=== PATIENT | female | born 1990 | race American Indian/Alaskan Native ===

== ENCOUNTER 2017-07-05 15:27 | Inpatient (IN) | payer MEDICAID ==
[2017-07-05] MEDS ORDERED: Misoprostol 25 MCG (1/4 of 100 MCG) Tab VAG ONE (17:10)
[2017-07-05] MEDS ORDERED: Acetaminophen 325 MG Tab PO PRN (18:33)
[2017-07-05] MEDS ORDERED: Sodium Chloride 0.9% 10 ML Syringe FLUSH PRN ×2 (18:33→20:10)
[2017-07-05] MEDS ORDERED: Misoprostol 25 MCG (1/4 of 100 MCG) Tab VAG PRN (18:33)
[2017-07-05] MEDS ORDERED: Oxytocin/Normal Saline 30 UNIT/500 ML BAG IV SCH (18:45)
[2017-07-05] MEDS ORDERED: Lactated Ringers 1,000 ML IV SCH (18:45)
[2017-07-05] MEDS ORDERED: Lactated Ringers 500 ML IV ONE (20:10)
[2017-07-05] MEDS ORDERED: Lidocaine 1% 30 ML SDV INJECT PRN (20:10)
[2017-07-05] MEDS ORDERED: Carboprost Tromethamine 250 MCG/1 ML Amp IM PRN (20:10)
[2017-07-05] MEDS ORDERED: Misoprostol 400 MCG (4 X 100 MCG TAB) RECTAL PRN (20:10)
[2017-07-05] MEDS ORDERED: Methylergonovine 0.2 MG/1 ML Amp IM PRN (20:10)
[2017-07-05] MEDS ORDERED: Ondansetron 4 MG/2 ML SDV IV PRN (20:10)
[2017-07-05] MEDS ORDERED: Famotidine 20 MG Tab PO ONE (21:19)
[2017-07-05] MEDS: Lactated Ringers 1,000 ML IV SCH (23:53)
[2017-07-06] MEDS ORDERED: EPINEPHrine 1 MG/ML SDV ONE ×2 (00:49→11:21)
[2017-07-06] MEDS ORDERED: fentaNYL 100 MCG/2 ML SDV ONE (00:49)
[2017-07-06] MEDS: Lactated Ringers 1,000 ML IV SCH (01:01)
[2017-07-06] MEDS ORDERED: Oxytocin 10 Units/1 ML SDV IM PRN (03:18)
[2017-07-06] MEDS ORDERED: Simethicone 80 MG Tab.Chew PO PRN (03:18)
[2017-07-06] MEDS ORDERED: Sodium Chloride 0.9% 10 ML Syringe FLUSH PRN (03:18)
[2017-07-06] MEDS ORDERED: Zolpidem 5 MG Tab PO PRN (03:18)
[2017-07-06] MEDS ORDERED: Benzocaine/Menthol 20%-0.5% Spray 56 GM Canister TOP PRN (03:18)
[2017-07-06] MEDS: Ibuprofen 800 MG Tab PO PRN ×3 (03:44→22:57)
--- NOTE | 2017-07-06 07:00 | DEL ---
DATE: 07/06/2017 PREOPERATIVE DIAGNOSES: 1. Intrauterine at 39 weeks and 2/7 days confirmed with 18-1/2 weeks' ultrasound. 2. Induction of labor upon admit. 3. Gestational hypertension upon admit. 4. Group B Streptococcus negative. 5. 4, para 2-0-1-2. POSTOPERATIVE DIAGNOSES: 1. Intrauterine at 39 weeks and 2/7 days confirmed with 18-1/2 weeks' ultrasound, delivered. 2. Induction of labor upon admit. 3. Gestational hypertension upon admit. 4. Group B Streptococcus negative. 5. 4, para 2-0-1-2. 6. Second-degree perineal abrasion, nonbleeding, non-repaired, and less than 1 cm. PROCEDURE PERFORMED: NST, Cytotec x1, and artificial rupture of membranes, all on 07/05/2017. On 07/06/2017, subsequent spontaneous vaginal delivery per Dr. Martin. ANESTHESIA/ANALGESIA: Intrathecal in the first stage of labor. ESTIMATED BLOOD LOSS: 350 mL. FINDINGS: Male, scores 9 and 9, weight 3960 g. SUMMARY OF EVENTS: The patient is a 27-year-old G4, P2-0-1-2, intrauterine at 39 weeks and 2/7 days by 18-1/2 weeks' ultrasound, admitted for induction of labor due to gestational hypertension. She received Cytotec x1. Then, subsequently had artificial rupture of membranes, this yielded copious amounts of clear fluid. She was followed closely thereafter and serially evaluated. As she progressed more into labor, she requested intrathecal, and this was subsequently given. She subsequently was found to be complete. Dr. Martin and I were called into the room, donned in sterile gown and gloves. The patient started pushing with contractions, and vertex was delivered in DANIELLE presentation followed by anterior and posterior shoulder then the rest of the without difficulty. Mouth and nares were bulb suctioned. Cord was doubly clamped and cut, and the infant was resuscitated on mother's abdomen. Approximately 10 mL of cord blood was obtained for labs. Placenta was then delivered with gentle cord traction and fundal massage within 15 to 20 minutes. The placenta was found to be intact, and there was a 3-vessel cord. Further fundal massage expelled a 300 cc clot from the uterus. Perineum, vagina, and perirectal areas were then examined and noted to have a small second-degree perineal abrasion, nonbleeding, non-repaired, and less than 1 cm. Mother and infant are currently stable at the time of dictation. seen and agreed with medical student-[facility] /[id number] CASS
--- NOTE | 2017-07-06 08:30 | PCM.PRNOTE ---
- Free Text/Narrative Note: Requested to provide analgesia to full term patient in severe pain. Upon entering the room, patient is sitting on edge of bed, complaining of severe abdominal pain and discomfort. Procedure was discussed with patient including adverse outcomes and expectations. Pt consented to analgesia, SAB/IT. Pt placed into a sitting position. Landmarks for SAB/IT were identified and marked. Back was prepped with betadine x3. A sterile, transparent, fenestrated drape was applied. Excess betadine was removed. Using 3 mL of a 1% lidocaine solution, a skin wheel was placed at the L3/L4 interspace. A 24 ga (4 inch) Pencan spinal needle was inserted until positive for CSF. Negative for heme or paresthesias. Injected fentanyl 20 mcg, sufentanil 10 mcg, and 12 mg of a 0.75 % bupivacaine solution with an epi wash. Pt was placed left lateral position for approximately 20 minutes. There were zero complications or adverse outcomes. Will continue to monitor.
[2017-07-06] MEDS: Docusate Sodium 100 MG Cap PO PRN ×2 (08:47→22:56)
[2017-07-06] MEDS: Prenatal Multivitamin with Calcium/Folic Acid/Iron Tab PO SCH (08:47)
--- NOTE | 2017-07-06 09:26 | PN ---
DATE: 07/05/2017 SUBJECTIVE: The patient's contractions are getting stronger. She is now status post Cytotec x1. OBJECTIVE: Last blood pressure was within normal ranges. heart tones in the 150s range, felt to be reassuring. Tocometer reveals contractions every 2 to 6 to 7 minutes apart. Vaginal exam reveals her to be 4 cm, 75% effaced, -1 station. Vertex suspected. Bulging bag of water noted with artificial rupture of membranes done after discussion with the patient, yielding copious amounts of clear fluid. ASSESSMENT AND PLAN: 1. Intrauterine at 39 and 1/7 weeks, confirmed with 18 and 1/7 weeks' ultrasound, complicated by gestational hypertension. No evidence of preeclampsia. 2. Group B Streptococcus negative. 3. 4, para 2-0-1-2. 4. Now, status post Cytotec x1 and artificial rupture of membranes as above. We will continue to follow clinically and closely. The patient denies any signs or symptoms of severe preeclampsia. [facility] /[id number]
--- NOTE | 2017-07-06 09:56 | OBOUT ---
DATE: 07/05/2017 DATE AND TIME OF NST: Date: 07/05/2017. Time: 1610 hours to 1630 hours. REASON FOR NST: 1. Intrauterine at 39 and 1/7 weeks confirmed by 18 and 1/7 week ultrasound. 2. Gestational hypertension. 3. GBS negative. 4. G4, P2-0-1-2. NST INTERPRETATION: During this time period, heart tone baseline is approximately 155, and there are at least two 15 x 15 beats per minute accelerations, making this strip reactive. It is also noted to be reassuring. Tocometer reveals potential of 4 contractions minimally felt by the patient. ASSESSMENT: 1. Nonstress test, reactive and reassuring. 2. Tocometer with occasional contractions. PLAN: The patient was admitted. Labs were done at the clinic prior to her presentation here. There were no concerns for preeclampsia with white cell count of 10.2, hemoglobin 13.5, and platelets 307. Urine protein-creatinine ratio was 0.2. AST, ALT, uric acid, BUN and creatinine were within normal limits. H and P was done in the clinic today. Please see Epic notes, which were placed in the chart as well. The patient at current time of dictation has now undergone Cytotec and then subsequently artificial rupture membranes approximately 2315 hours. Please see progress note in regard to that. [facility] /[id number]
[2017-07-06] MEDS ORDERED: fentaNYL 100 MCG/2 ML SDV ITHECAL ONE (11:21)
--- NOTE | 2017-07-07 10:31 | PCM.PNPP ---
- General Info Date of Service: 07/07/17 ( PPD # 1) Functional Status: Reports: Pain Controlled, Tolerating Diet, Ambulating, Urinating - Review of Systems General: Reports: No Symptoms HEENT: Reports: No Symptoms Pulmonary: Reports: No Symptoms Cardiovascular: Reports: No Symptoms Gastrointestinal: Reports: No Symptoms Genitourinary: Reports: No Symptoms Musculoskeletal: Reports: No Symptoms Skin: Reports: No Symptoms Neurological: Reports: No Symptoms Psychiatric: Reports: No Symptoms - General Info Date of Service: 07/07/17 (PPD # 1 S/P ) - Patient Data Vital Signs - Most Recent: Last Vital Signs Temp 97.8 F 07/06/17 20:00 Pulse 90 07/06/17 23:00 Resp 16 07/06/17 23:00 BP 132/72 07/06/17 23:00 Pulse Ox 96 07/06/17 01:20 Weight - Most Recent: 195 lb Lab Results - Last 24 Hours: Laboratory Results - last 24 hr 07/07/17 Range/Units 06:20 WBC 8.5 (5.0-10.0) 10^3/uL RBC 3.82 L (4.2-5.4) 10^6/uL Hgb 11.7 L (12.0-16.0) g/dL Hct 35.8 L (37.0-47.0) % MCV 93.7 (80-100) fL MCH 30.6 (27.0-34.0) pg MCHC 32.7 L (33.0-35.0) g/dL Plt Count 233 (150-450) 10^3/uL Med Orders - Current: Current Medications Acetaminophen (Tylenol) 650 mg PO Q4H PRN PRN Reason: Pain/Fever Benzocaine/Menthol (Dermoplast Pain Relief [place]) 0 gm TOP Q4H PRN PRN Reason: Perineal comfort measures Last Admin: 07/06/17 03:44 Dose: 1 spray Carboprost Tromethamine (Hemabate Ds) 250 mcg IM ASDIRECTED PRN PRN Reason: HEMORRHAGE Docusate Sodium (Colace) 100 mg PO BID PRN PRN Reason: Constipation Last Admin: 07/06/17 22:56 Dose: 100 mg Lactated Ringer's (Ringers, Lactated) 1,000 mls @ 125 mls/hr IV ASDIRECTED CIARA Oxytocin/Sodium Chloride (Pitocin In Ns 30 Unit/500 Ml) 30 unit in 500 mls @ 2 mls/hr IV TITRATE CIARA; 2 MUNITS/MIN PRN Reason: Protocol Last Titration: 07/06/17 06:20 Dose: Infused Lactated Ringer's (Ringers, Lactated) 1,000 mls @ 125 mls/hr IV ASDIRECTED CIARA Last Admin: 07/06/17 01:01 Dose: 125 mls/hr Ibuprofen (Motrin) 800 mg PO Q8H PRN PRN Reason: Mild Pain or Fever Last Admin: 07/06/17 22:57 Dose: 800 mg Lidocaine HCl (Xylocaine-Mpf 1%) 10 ml INJECT ASDIRECTED PRN PRN Reason: Perineal Repair Methylergonovine Maleate (Methergine) 0.2 mg IM ASDIRECTED PRN PRN Reason: Hemorrhage Misoprostol (Cytotec) 25 mcg VAG Q4H PRN PRN Reason: cervical ripening Misoprostol (Cytotec) 800 mcg RECTAL ASDIRECTED PRN PRN Reason: Hemorrhage Ondansetron HCl (Zofran) 4 mg IV Q4H PRN PRN Reason: Nausea/Vomiting Last Admin: 07/06/17 00:38 Dose: 4 mg Oxytocin (Pitocin) 10 unit IM ONETIME PRN PRN Reason: Bleeding Prenat Multivit/Appraisal Technician/Iron/Folic Ac ( Plus Iron) 1 each PO DAILY [facility] Last Admin: 07/06/17 08:47 Dose: 1 each Simethicone (Simethicone) 80 mg PO Q4H PRN PRN Reason: Gas Sodium Chloride (Saline Flush) 10 ml FLUSH ASDIRECTED PRN PRN Reason: Keep Vein Open Sodium Chloride (Saline Flush) 10 ml FLUSH ASDIRECTED PRN PRN Reason: Keep Vein Open Sodium Chloride (Saline Flush) 10 ml FLUSH ASDIRECTED PRN PRN Reason: Keep Vein Open Zolpidem Tartrate (Ambien) 5 mg PO BEDTIME PRN PRN Reason: Insomnia Discontinued Medications Epinephrine HCl (Adrenalin) Confirm Administered Dose 1 mg .ROUTE .STK-MED ONE Stop: 07/06/17 00:50 Last Admin: 07/06/17 18:30 Dose: Not Given Epinephrine HCl (Adrenalin) 0.1 mg .XX .STK-MED ONE Stop: 07/06/17 11:22 Famotidine (Pepcid) 20 mg PO ONETIME ONE Stop: 07/05/17 21:20 Last Admin: 07/05/17 22:29 Dose: 20 mg Fentanyl (Sublimaze) Confirm Administered Dose 100 mcg .ROUTE .STK-MED ONE Stop: 07/06/17 00:50 Last Admin: 07/06/17 18:30 Dose: Not Given Fentanyl (Sublimaze) 20 mcg ITHECAL .STK-MED ONE Stop: 07/06/17 11:22 Lactated Ringer's (Ringers, Lactated) 500 mls @ 500 mls/hr IV ONETIME ONE Stop: 07/05/17 21:09 Last Admin: 07/06/17 05:45 Dose: Not Given Misoprostol (Cytotec) 25 mcg VAG ONETIME ONE Stop: 07/05/17 17:11 Last Admin: 07/05/17 18:31 Dose: 25 mcg Sufentanil Citrate (Sufenta) Confirm Administered Dose 50 mcg .ROUTE .STK-MED ONE Stop: 07/06/17 00:50 Last Admin: 07/06/17 18:30 Dose: Not Given Sufentanil Citrate (Sufenta) 10 mcg ITHECAL .STK-MED ONE Stop: 07/06/17 11:22 - Interaction Support Person: Significant Other - Recovery Exam Fundal Tone: Firm Fundal Level: 2 Fingerbreadths Below Umbilicus Fundal Placement: Midline Lochia Amount: Small Lochia Color: Rubra/Red Perineum Description: Intact, Minimal Bruising/Swelling Episiotomy/Laceration: None Bladder Status: Nonpalpable, Voiding - Exam General: Alert, Oriented, Cooperative, No Acute Distress, Mild Distress HEENT: Pupils Equal, Pupils Reactive, Mucous Membr. Moist/[place] Neck: Supple Lungs: Clear to Auscultation, Normal Respiratory Effort Cardiovascular: Regular Rate, Regular Rhythm, No Murmurs GI/Abdominal Exam: Normal Bowel Sounds, Soft, Non-Tender, No Organomegaly, No Distention Extremities: Normal Inspection, Normal Range of Motion, Non-Tender Skin: Warm, Dry, Intact Neurological: No New Focal Deficit, Normal Gait, Normal Speech, Normal Tone Psy/Mental Status: Alert, Normal Affect, Normal Mood - Problem List Review Problem List Initiated/Reviewed/Updated: Yes - My Orders Last 24 Hours: My Active Orders 07/07/17 10:23 Ready for Discharge [RC] PER UNIT ROUTINE - Assessment Assessment:: PPD # 1 S/P Doing well - Plan Plan:: Discharge to home Follow-up with Dr. Martin for recheck Ibuprofen/Tylenol for pain as needed
[2017-07-07] MEDS: Ibuprofen 800 MG Tab PO PRN (10:35)
[2017-07-07] MEDS: Docusate Sodium 100 MG Cap PO PRN (10:35)
[2017-07-07] MEDS: Prenatal Multivitamin with Calcium/Folic Acid/Iron Tab PO SCH (10:36)
[2017-07-07] MEDS ORDERED: FLU VAC QS 17-18(4YR UP)CEL/PF 60 MCG/0.5 ML Syringe IM ONE (13:05)
[2017-07-07 17:26] VITALS: BP 114/63
--- NOTE | 2017-07-09 07:29 | DISCH ---
INDICATION FOR ADMISSION: Ms Marr is a 27-year-old, 4, para 2-0-1-2 female who reported to Labor and Delivery at 39 and 2/7 weeks gestation for induction of labor. She had gestational hypertension. She received Cytotec x1 and tolerated her labor quite well. She had artificial rupture of membranes with clear fluid and once she got uncomfortable, intrathecal anesthesia was obtained. Once she got to complete, she started pushing and she had a normal spontaneous vaginal delivery, DANIELLE of a viable male weighing 8 pounds 12 ounces with scores of 9 at 1 minute, 9 at 5 minutes. She recovered quite well and the went to the nursery. She had a second-degree perineal laceration that was repaired without difficulty. No complications occurred throughout her hospital stay. She tolerated her diet quite well and ambulated quite well. No complications occurred throughout her hospital stay. She had minimal lochia. She was discharged to home on day #1. LABORATORY AND DIAGNOSTIC STUDIES: 07/05/2017; WBC 10.1, hemoglobin 12.7, hematocrit 38.0, platelet count 291,000. On 07/07/2017; WBC 8.5, hemoglobin 11.7, hematocrit 35.8, and platelet count 233,000. DISCHARGE INSTRUCTIONS: 1. Discharge to home. 2. Follow up with Dr. Martin at checkup. 3. No douching, tampons, intercourse for 6 weeks. 4. Discharge instructions including activity, followup, medications, diet, and wound care were discussed with the patient. She understands these and is willing to comply with these. 5. Ibuprofen 800 mg 1 tablet every 8 hours p.r.n. for discomfort. 6. Tylenol p.r.n. for pain. DISCHARGE DIAGNOSES: 1. 39 and 2/7 week intrauterine . 2. Gestational hypertension. 3. Induction of labor with Cytotec. 4. Artificial rupture of membranes. 5. Normal spontaneous vaginal delivery of a viable male weighing 8 pounds 12 ounces with scores of 9 at 1 minute, 9 at 5 minutes. 6. Intrathecal anesthesia. [facility] /[id number]
== END 2017-07-07 14:00 | disposition home or self-care (01) | DRG 775 ==
LOC: DL.OBCHECK 15:27 → DL.OB 15:39 → OBSVTOIN 07-06 03:00
PROVIDERS: ADMIT Family Medicine; ATTEND Family Medicine
PROC: 10E0XZZ Delivery of Products of Conception, External Approach (ICD-10-PCS; principal; 2017-07-06)
PROC: 0KQM0ZZ Repair Perineum Muscle, Open Approach (ICD-10-PCS; 2017-07-06)
PROC: 10907ZC Drainage of Amniotic Fluid, Therapeutic from Products of Conception, Via Natural or Artificial Opening (ICD-10-PCS; 2017-07-06)
PROC: 00HU33Z Insertion of Infusion Device into Spinal Canal, Percutaneous Approach (ICD-10-PCS; 2017-07-06)
PROC: 3E0R3BZ Introduction of Anesthetic Agent into Spinal Canal, Percutaneous Approach (ICD-10-PCS; 2017-07-06)
DX: O13.4 Gestational [pregnancy-induced] hypertension without significant proteinuria, complicating childbirth (principal); O70.1 Second degree perineal laceration during delivery; Z37.0 Single live birth; Z3A.39 39 weeks gestation of pregnancy
CPT/HCPCS: 36415; 59025; 59409; 85027; 90674; A9270-GY; J0171; J2405; J2590; J3010; J7120

== ENCOUNTER 2020-11-22 15:39 | Emergency (ER) | payer MEDICAID ==
[2020-11-22] MEDS ORDERED: LORazepam 2 MG/ML SDV IVPUSH ONE (15:55)
[2020-11-22] MEDS ORDERED: Ondansetron 4 MG/2 ML SDV IV ONE (15:56)
[2020-11-22] MEDS ORDERED: Sodium Chloride 0.9% 1,000 ML IV ONE (15:56)
[2020-11-22] MEDS ORDERED: Sodium Chloride 0.9% 10 ML Syringe FLUSH PRN (15:57)
[2020-11-22 15:59] VITALS: BP 159/74; PULSE 95
[2020-11-22 16:46] LABS: ANION GAP 16.6 mEq/L (7-13); CHLORIDE,CL 102 mmol/L (98-107); SODIUM,NA 141 mmol/L (136-145)
[2020-11-22] MEDS ORDERED: Magnesium Sulfate/Water 2 GM in Premix Bag 1 BAG IV ONE (16:55)
--- NOTE | 2020-11-22 17:22 | EDM.PDOC ---
Scribed by Elizabeth Sanders 11/22/20 3854 for Jv Beltrán MD ED HPI GENERAL MEDICAL PROBLEM - General Chief Complaint: General Stated Complaint: AMBULANCE Time Seen by Provider: 11/22/20 15:51 Source of Information: Reports: Patient, EMS, EMS Notes Reviewed, RN Notes Reviewed History Limitations: Reports: No Limitations - History of Present Illness INITIAL COMMENTS - FREE TEXT/NARRATIVE: Patient arrives to ED by [facility] with complaint of a panic attack. Patient states that she has felt anxious all day and has had the feeling that she cannot breathe. Patient states that she has a history of anxiety and panic attacks but has not had one in a while. Patient states she was previously on medications for this but has since stopped taking them. Patient denies pain. Denies chances of . Onset: Today Duration: Getting Worse Improves with: Reports: None Worsens with: Reports: None Associated Symptoms: Reports: No Other Symptoms - Related Data Allergies Allergy/AdvReac Type Severity Reaction Status Date / Time No Known Allergies Allergy Verified 11/22/20 15:52 Home Meds: Home Meds . 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 3 1/2 weeks ago Musculoskeletal History: Reports: None Neurological History: Reports: Concussion Psychiatric History: Reports: None Endocrine/Metabolic History: Reports: None Hematologic History: Reports: None - Infectious Disease History Infectious Disease History: Reports: Chicken Pox - Past Surgical History Respiratory Surgical History: Reports: None Female Surgical History: Reports: Breast Biopsy Social & Family History - Family History Family Medical History: No Pertinent Family History - Caffeine Use Caffeine Use: Reports: None - Living Situation & Occupation Living situation: Reports: with Significant Other ED ROS GENERAL - Review of Systems Review Of Systems: Comprehensive ROS is negative, except as noted in HPI. ED EXAM, GENERAL - Physical Exam Exam: See Below Exam Limited By: No Limitations General Appearance: Alert, WD/WN, Anxious, Mild Distress (Due to panic attack) Eye Exam: Bilateral Eye: EOMI, Normal Inspection, PERRL Ears: Normal External Exam, Hearing Grossly Normal Nose: Normal Inspection, Normal Mucosa, No Blood Throat/Mouth: Normal Inspection, Normal Lips, Normal Teeth, Normal Gums, Normal Oropharynx, Normal Voice, No Airway Compromise Head: Atraumatic, Normocephalic Neck: Normal Inspection, Supple, Non-Tender, Full Range of Motion Respiratory/Chest: No Respiratory Distress, Lungs Clear, Normal Breath Sounds, No Accessory Muscle Use, Chest Non-Tender Cardiovascular: Normal Peripheral Pulses, Regular Rate, Rhythm, No Edema, No Gallop, No JVD, No Murmur, No Rub GI/Abdominal: Normal Bowel Sounds, Soft, Non-Tender, No Organomegaly, No Distention, No Abnormal Bruit, No Mass (Female) Exam: Deferred Rectal (Female) Exam: Deferred Back Exam: Normal Inspection, Full Range of Motion, NT Extremities: Normal Inspection, Normal Range of Motion, Non-Tender, Normal Capillary Refill, No Pedal Edema Neurological: Alert, Oriented, CN II-XII Intact, Normal Cognition, Normal Gait, Normal Reflexes, No Motor/Sensory Deficits Psychiatric: Anxious, Tearful Skin Exam: Warm, Dry, Intact, Normal Color, No Rash Course - Vital Signs Last Recorded V/S: Last Vital Signs Temp 97.9 F 11/22/20 15:52 Pulse 95 11/22/20 15:52 Resp 24 H 11/22/20 15:52 BP 159/74 H 11/22/20 15:52 Pulse Ox 99 11/22/20 15:52 - Orders/Labs/Meds Orders: Active Orders 24 hr Category Date Time Status Peripheral IV Care [RC] . DIRECTED Care 11/22/20 15:57 Active Magnesium Sulfate/Water [Magnesium Sulfate in Water 2 Med 11/22/20 16:55 Active GM/50 ML] 2 gm Premix Bag 1 bag IV ONETIME Sodium Chloride 0.9% [Saline Flush] Med 11/22/20 15:57 Active 10 ml FLUSH ASDIRECTED PRN Peripheral IV Insertion Adult [OM.PC] Stat Oth 11/22/20 15:56 Ordered Medication Orders Magnesium Sulfate 2 gm/ Premix 50 mls @ 50 mls/hr IV ONETIME ONE Stop: 11/22/20 17:54 Last Admin: 11/22/20 17:04 Dose: 50 mls/hr Documented by: [id number] Sodium Chloride (Sodium Chloride 0.9% 10 Ml Syringe) 10 ml FLUSH ASDIRECTED PRN PRN Reason: Keep Vein Open Last Admin: 11/22/20 16:11 Dose: 10 ml Documented by: [id number] Labs: Laboratory Tests 11/22/20 11/22/20 11/22/20 Range/Units 16:07 16:07 16:37 WBC 10.4 H (5.0-10.0) 10^3/uL RBC 4.36 (4.2-5.4) 10^6/uL Hgb 13.6 (12.0-16.0) g/dL Hct 41.0 (37.0-47.0) % MCV 94.0 (80-100) fL MCH 31.2 (27.0-34.0) pg MCHC 33.2 (33.0-35.0) g/dL Plt Count 343 (150-450) 10^3/uL Neut % (Auto) 74.2 (42.2-75.2) % Lymph % (Auto) 17.9 L (20.5-50.1) % [place] % (Auto) 5.9 (2-8) % Eos % (Auto) 1.6 (1.0-3.0) % Baso % (Auto) 0.4 (0.0-1.0) % Sodium 141 (136-145) mmol/L Potassium 3.6 (3.5-5.1) mmol/L Chloride 102 (98-107) mmol/L Carbon Dioxide 26 (21-32) mmol/L Anion Gap 16.6 H (7-13) mEq/L BUN 9 (7-18) mg/dL Creatinine 1.01 (0.55-1.02) mg/dL Est Cr Clr Drug Dosing 82.91 mL/min Estimated GFR (MDRD) > 60 BUN/Creatinine Ratio 8.9 (No establ ref range) Glucose 104 H (70-99) mg/dL Calcium 7.9 L (8.5-10.1) mg/dL Magnesium 1.5 L (1.8-2.4) mg/dL Total Bilirubin 0.3 (0.2-1.0) mg/dL AST 43 H (15-37) U/L ALT 72 H (14-59) U/L Alkaline Phosphatase 104 (46-116) U/L Total Protein 7.0 (6.4-8.2) g/dL Albumin 3.6 (3.4-5.0) g/dL Globulin 3.4 Albumin/Globulin Ratio 1.1 TSH, Ultra Sensitive 1.66 (0.36-3.74) uIU/mL Urine Color Yellow (YELLOW) Urine Appearance Slightly cloudy (CLEAR) Urine pH 5.5 (5.0-9.0) Ur Specific [place] 1.010 (1.005-1.030) Urine Protein Negative (NEGATIVE) Urine Glucose (UA) Negative (NEGATIVE) Urine Ketones Negative (NEGATIVE) Urine Occult Blood Trace-lysed H (NEGATIVE) Urine Nitrite Negative (NEGATIVE) Urine Bilirubin Negative (NEGATIVE) Urine Urobilinogen 0.2 (0.2-1.0) mg/dL Ur Leukocyte Esterase Negative (NEGATIVE) Urine RBC 0-5 /HPF Urine WBC 0-5 (0-5/HPF) /HPF Ur Epithelial Cells Few (NOT SEEN) /HPF Urine Bacteria Rare (0-FEW/HPF) /HPF Urine HCG, Qual Urine Opiates Screen (NEGATIVE) Ur Oxycodone Screen (NEGATIVE) Urine Methadone Screen (NEGATIVE) Ur Barbiturates Screen (NEGATIVE) U Tricyclic Antidepress (NEGATIVE) Ur Phencyclidine Scrn (NEGATIVE) Ur Amphetamine Screen (NEGATIVE) U Methamphetamines Scrn (NEGATIVE) Urine MDMA Screen (NEGATIVE) U Benzodiazepines Scrn (NEGATIVE) Urine Cocaine Screen (NEGATIVE) U Marijuana (THC) Screen (NEGATIVE) Ethyl Alcohol < 3 (0) mg/dL 11/22/20 11/22/20 Range/Units 16:37 16:37 WBC (5.0-10.0) 10^3/uL RBC (4.2-5.4) 10^6/uL Hgb (12.0-16.0) g/dL Hct (37.0-47.0) % MCV (80-100) fL MCH (27.0-34.0) pg MCHC (33.0-35.0) g/dL Plt Count (150-450) 10^3/uL Neut % (Auto) (42.2-75.2) % Lymph % (Auto) (20.5-50.1) % [place] % (Auto) (2-8) % Eos % (Auto) (1.0-3.0) % Baso % (Auto) (0.0-1.0) % Sodium (136-145) mmol/L Potassium (3.5-5.1) mmol/L Chloride (98-107) mmol/L Carbon Dioxide (21-32) mmol/L Anion Gap (7-13) mEq/L BUN (7-18) mg/dL Creatinine (0.55-1.02) mg/dL Est Cr Clr Drug Dosing mL/min Estimated GFR (MDRD) BUN/Creatinine Ratio (No establ ref range) Glucose (70-99) mg/dL Calcium (8.5-10.1) mg/dL Magnesium (1.8-2.4) mg/dL Total Bilirubin (0.2-1.0) mg/dL AST (15-37) U/L ALT (14-59) U/L Alkaline Phosphatase (46-116) U/L Total Protein (6.4-8.2) g/dL Albumin (3.4-5.0) g/dL Globulin Albumin/Globulin Ratio TSH, Ultra Sensitive (0.36-3.74) uIU/mL Urine Color (YELLOW) Urine Appearance (CLEAR) Urine pH (5.0-9.0) Ur Specific [place] (1.005-1.030) Urine Protein (NEGATIVE) Urine Glucose (UA) (NEGATIVE) Urine Ketones (NEGATIVE) Urine Occult Blood (NEGATIVE) Urine Nitrite (NEGATIVE) Urine Bilirubin (NEGATIVE) Urine Urobilinogen (0.2-1.0) mg/dL Ur Leukocyte Esterase (NEGATIVE) Urine RBC /HPF Urine WBC (0-5/HPF) /HPF Ur Epithelial Cells (NOT SEEN) /HPF Urine Bacteria (0-FEW/HPF) /HPF Urine HCG, Qual Negative Urine Opiates Screen Negative (NEGATIVE) Ur Oxycodone Screen Negative (NEGATIVE) Urine Methadone Screen Negative (NEGATIVE) Ur Barbiturates Screen Negative (NEGATIVE) U Tricyclic Antidepress Negative (NEGATIVE) Ur Phencyclidine Scrn Negative (NEGATIVE) Ur Amphetamine Screen Negative (NEGATIVE) U Methamphetamines Scrn Negative (NEGATIVE) Urine MDMA Screen Negative (NEGATIVE) U Benzodiazepines Scrn Negative (NEGATIVE) Urine Cocaine Screen Negative (NEGATIVE) U Marijuana (THC) Screen Negative (NEGATIVE) Ethyl Alcohol (0) mg/dL Meds: Medications Generic Name Dose Route Start Last Admin Trade Name Bolivarq PRN Reason Stop Dose Admin Magnesium Sulfate 2 gm/ Premix 50 mls @ 50 mls/hr 11/22/20 16:55 11/22/20 17:04 IV 11/22/20 17:54 50 mls/hr ONETIME ONE Administration Sodium Chloride 10 ml 11/22/20 15:57 11/22/20 16:11 Sodium Chloride 0.9% 10 Ml Syringe FLUSH 10 ml ASDIRECTED PRN Administration Keep Vein Open Discontinued Medications Generic Name Dose Route Start Last Admin Trade Name Levar PRN Reason Stop Dose Admin Sodium Chloride 1,000 mls @ 999 mls/hr 11/22/20 15:56 11/22/20 16:10 Normal Saline IV 11/22/20 16:56 999 mls/hr .BOLUS ONE Administration Lorazepam 2 mg 11/22/20 15:55 11/22/20 16:11 Lorazepam 2 Mg/Ml Sdv IVPUSH 11/22/20 15:56 2 mg ONETIME ONE Administration Ondansetron HCl 4 mg 11/22/20 15:56 11/22/20 16:10 Ondansetron 4 Mg/2 Ml Sdv IV 11/22/20 15:57 4 mg ONETIME ONE Administration Departure - Departure Time of Disposition: 18:00 Disposition: Home, Self-Care 01 Condition: Good Clinical Impression: Panic attack, Hypomagnesemia - Discharge Information *PRESCRIPTION DRUG MONITORING PROGRAM REVIEWED*: No *COPY OF PRESCRIPTION DRUG MONITORING REPORT IN PATIENT NARAYAN: No Instructions: Panic Attack, Hypomagnesemia, Managing Anxiety, Adult Forms: ED Department Discharge Additional Instructions: Rx: Lorazepam 1mg Follow up in clinic next week for recheck of magnesium level, and discuss anxiety/panic attack management if needed. Sepsis Event Note (ED) - Focused Exam Vital Signs: Vital Signs Temp Pulse Resp BP Pulse Ox 11/22/20 15:52 97.9 F 95 24 H 159/74 H 99 - My Orders Last 24 Hours: My Active Orders 11/22/20 15:56 Peripheral IV Insertion Adult [OM.PC] Stat 11/22/20 15:57 Peripheral IV Care [RC] . DIRECTED Sodium Chloride 0.9% [Saline Flush] 10 ml FLUSH ASDIRECTED PRN 11/22/20 16:55 Magnesium Sulfate/Water [Magnesium Sulfate in Water 2 GM/50 ML] 2 gm Premix Bag 1 bag IV ONETIME - Assessment/Plan Last 24 Hours: My Active Orders 11/22/20 15:56 Peripheral IV Insertion Adult [OM.PC] Stat 11/22/20 15:57 Peripheral IV Care [RC] . DIRECTED Sodium Chloride 0.9% [Saline Flush] 10 ml FLUSH ASDIRECTED PRN 11/22/20 16:55 Magnesium Sulfate/Water [Magnesium Sulfate in Water 2 GM/50 ML] 2 gm Premix Bag 1 bag IV ONETIME I have read and agree with the documentation that has been completed regarding this visit. By signing this record, I attest that the documentation was completed in my physical presence and is an accurate record of the encounter.
== END 2020-11-22 17:47 | disposition home or self-care (01) ==
LOC: DL.ED 15:39
DX: F41.0 Panic disorder [episodic paroxysmal anxiety] (principal); E83.42 Hypomagnesemia
CPT/HCPCS: 36415; 80053; 80305-QW; 80307; 81001; 81025; 83735; 84443; 85025; 96365; 96375; 99283; 99283-25; J2060; J2405; J3475; J7030